=== PATIENT | male | born 1995 | race Two or more races ===

== ENCOUNTER 2018-07-24 20:59 | Emergency (ER) | payer OTHER ==
[2018-07-24 21:01] VITALS: Ht 170.2 cm
[2018-07-24 22:17] VITALS: BP 116/68
== END 2018-07-24 22:10 | disposition home or self-care (01) ==
LOC: ED 20:59
DX: M94.0 Chondrocostal junction syndrome [Tietze] (principal); F17.210 Nicotine dependence, cigarettes, uncomplicated
CPT/HCPCS: J1885